=== PATIENT | male | born 1970 | race Hispanic/Latino ===

== ENCOUNTER 2019-10-24 18:37 | Emergency (ER) | payer OTHER ==
[~2019-10-24] VITALS: Ht 172.7 cm; Wt 90.8 kg
[~2019-10-24 18:37] MED LIST: AMOXICILLIN500 MG OR; AMOXICILLIN500 MG PO; LORTAB 10 OR; NO HOME MEDS
[2019-10-24 22:15] VITALS: BP 142/97
== END 2019-10-24 22:15 | disposition short-term general hospital (02) | DRG 563 ==
LOC: ED 18:37
PROC: 2W3QX1Z Immobilization of Right Lower Leg using Splint (ICD-10-PCS; principal; 2019-10-24)
DX: S89.201A Unspecified physeal fracture of upper end of right fibula, initial encounter for closed fracture (principal); S89.101A Unspecified physeal fracture of lower end of right tibia, initial encounter for closed fracture; W18.39XA Other fall on same level, initial encounter; Y93.89 Activity, other specified; Y92.410 Unspecified street and highway as the place of occurrence of the external cause